=== PATIENT | female | born 1975 | race Hispanic/Latino ===

== ENCOUNTER 2017-09-23 17:35 | Observation (INO) | payer SELFPAY ==
[~2017-09-23 17:35] MED LIST: ISOVUE-370 76%-LOCM 1 ML ONE
[2017-09-23] MEDS ORDERED: Ondansetron HCl/PF 4 MG/2 ML Vial ONE (22:20)
[2017-09-23] MEDS ORDERED: Fentanyl 100 MCG/2 ML VIAL ONE (22:50)
[2017-09-23 23:13] LABS: CKMB 2.8 ng/mL (0-6.6); Troponin I 0.012 ng/mL (< 0.028)
[2017-09-24] MEDS ORDERED: Fentanyl 100 MCG/2 ML VIAL ONE ×3 (00:40→08:48)
[2017-09-24] MEDS ORDERED: Piperacillin/Tazobactam 3.375 GM in Sodium Chloride 0.9% 100 ML IVPB SCH ×2 (00:45→08:00)
[2017-09-24] MEDS ORDERED: Ketorolac Tromethamine 30 MG/ML VIAL IVP PRN (02:00)
[2017-09-24] MEDS ORDERED: Fentanyl 100 MCG/2 ML VIAL SLOW IVP PRN (02:00)
[2017-09-24] MEDS: Ondansetron HCl/PF 4 MG/2 ML Vial IVP PRN ×2 (02:10→08:10)
[2017-09-24 02:24] VITALS: BMI 28.3
[2017-09-24] MEDS: D5 1/2 NS w/20 mEq KCL 1,000 ML IV SCH ×2 (02:36→12:47)
[2017-09-24 04:09] VITALS: TEMP 98.4
--- NOTE | 2017-09-24 07:49 | CT ---
CTA CHEST WITH 3D VOLUME RENDERING: CLINICAL HISTORY: Elevated D-dimer with chest pain. FINDINGS: There is no evidence of a significant filling defect of the contrast-opacified pulmonary arterial sys tem. There is a mild generalized heterogeneity of the distal pulmonary arterial system involving seg mental and subsegmental branches which could potentially obscure small peripheral emboli. There is n o lobar consolidation, effusion, or pneumothorax.. Minimal volume is seen within the pulmonary paren chyma. Moderate distention of the gallbladder. The thoracic aorta is nonaneurysmal. IMPRESSION: 1. There is no acute pulmonary embolus evident. 2. Incompletely assessed and partially visualized distention of the gallbladder. Recommend clinical correlation and dedicated imaging followup as necessary. POS: [facility]
--- NOTE | 2017-09-24 08:08 | ULT ---
RIGHT UPPER QUADRANT ULTRASOUND: DATE: 09/23/17. HISTORY: Right upper quadrant abdominal pain which is worse over the past few days. Nausea and vomiting as we ll as constipation for 1 day. FINDINGS: The uterus is enlarged in craniocaudal dimensions measuring 18.3 cm in craniocaudal dimensions. The gallbladder is distended measuring 15.2 cm in length x 5.5 cm in diameter. Multiple shadowing echoge lucie foci are seen in the gallbladder lumen consistent with multiple gallbladder calculi. There is a calculus present in the neck of the gallbladder which is nonmobile. There is a tiny amount of perich olecystic fluid without significant gallbladder wall thickening present. The common duct measures 0. 5 cm in diameter, which is within normal limits. The limited visualized portions of the pancreas, visualized portions of the IVC, and right kidney dem onstrate a normal sonographic appearance. The right kidney measures 11.7 cm in length. IMPRESSION: 1. Cholelithiasis with a tiny amount of pericholecystic fluid. In the correct clinical scenario, fi ndings could be related to cholecystitis. Multiple gallbladder calculi are seen as well as distentio n of the gallbladder with nonmobile calculus in the gallbladder neck. 2. Mild hepatomegaly. POS: [facility]
[2017-09-24] MEDS ORDERED: Scopolamine 1.5 mg/72 hour Patch TOP SCH (08:15)
[2017-09-24] MEDS ORDERED: Bupivacaine/Epinephrine 0.25% 30 ML VIAL ONE (08:30)
[2017-09-24] MEDS ORDERED: Midazolam HCl 2 mg/2 ml Vial ONE (08:31)
[2017-09-24] MEDS ORDERED: Ondansetron HCl/PF 4 MG/2 ML Vial ONE ×2 (08:54→11:12)
[2017-09-24] MEDS ORDERED: Ketorolac Tromethamine 30 MG/ML VIAL ONE (09:17)
--- NOTE | 2017-09-24 09:29 | HP ---
HISTORY OF PRESENT ILLNESS: Ann Diaz is a 42-year-old female [id number] to Dr. 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 She thought it was indigestion having some part icularly severe episode presenting to Dr. Rose who suggested suspected gallbladder disease and ultrasound in his office confirmed that and she was sent to [place] [facility] at 2:30 in the [facility] because of a busy emergency room there and they were not sent over to [facility] til 11-12 last night. Ultrasound confirmed gallstones. Liver function tests were normal. EKG was nor mal. The patient was sent to the [place] [facility] where I was called by the emergency room physician about 1 in the morning. She was admitted at 2 in the morning, approximately 11 hours after presenting to her primary care physician's office. ALLERGIES: MORPHINE pruritus, hives, nausea and vomiting. SOCIAL HISTORY: Tobacco none. Alcohol rarely. MEDICATIONS: None routinely. PAST SURGICAL HISTORY: C-sections x3 and umbilical hernia repair. PAST MEDICAL HISTORY: Noncontributory. 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 They live in [place]. PHYSICAL EXAMINATION: HEAD, EYES, EARS, NOSE, AND THROAT: Unremarkable. LUNGS: Clear to auscultation. CARDIAC: Regular rate and rhythm without murmur or gallop. ABDOMEN: Soft, tenderness in right upper quadrant with guarding and rebound. EXTREMITIES: Unremarkable. ASSESSMENT AND PLAN: Cholecystitis, cholelithiasis. Recommend laparoscopic video cholecystectomy. Risks of infection, bleeding, visceral and biliary injury explained. She consents.
[2017-09-24] MEDS ORDERED: Promethazine HCl 25 MG/ML VIAL IM PRN (11:02)
[2017-09-24] MEDS ORDERED: Ondansetron HCl/PF 4 MG/2 ML Vial IVP PRN ×2 (11:02→12:17)
[2017-09-24] MEDS ORDERED: Promethazine HCl 25 MG/ML VIAL SLOW IVP PRN (11:02)
[2017-09-24] MEDS ORDERED: Propofol 200 MG/20 ML VIAL ONE (11:12)
[2017-09-24] MEDS ORDERED: Glycopyrrolate 0.2 MG/ML 5 ML SYRINGE ONE (11:12)
[2017-09-24] MEDS ORDERED: Dexamethasone 20 MG/5 ML VIAL ONE (11:12)
[2017-09-24] MEDS ORDERED: PHENYLEPHRINE-NS 100 MCG/ML 10 ML SYRINGE ONE (11:12)
[2017-09-24] MEDS ORDERED: Lidocaine 1% PF 5 ML VIAL ONE (11:12)
[2017-09-24] MEDS ORDERED: Ibuprofen 600 MG TAB PO PRN (12:17)
[2017-09-24] MEDS ORDERED: Ondansetron ODT 4 MG TAB PO PRN (12:17)
[2017-09-24] MEDS ORDERED: Ondansetron ODT 8 MG TAB PO PRN (12:17)
[2017-09-24] MEDS ORDERED: Ondansetron HCl/PF 8 MG in Sodium Chloride 0.9% 50 ML IVPB SCH (12:17)
[2017-09-24] MEDS ORDERED: Ondansetron ODT 8 MG TAB SL PRN (12:17)
[2017-09-24] MEDS ORDERED: Acetaminophen 500 MG TAB PO PRN (12:17)
[2017-09-24] MEDS ORDERED: traMADol HCl 50 MG TAB PO PRN ×2 (12:17)
[2017-09-24] MEDS ORDERED: Ondansetron ORAL SOLN. 4 MG/5 ML UDCUP PO PRN ×2 (12:17)
--- NOTE | 2017-09-24 13:07 | OP ---
PREOPERATIVE DIAGNOSES: Acute cholecystitis, cholelithiasis, history of umbilical hernia repair mesh with concerns of recurrent hernia. POSTOPERATIVE DIAGNOSES: Acute cholecystitis, cholelithiasis, history of umbilical hernia repair mes h with concerns of recurrent hernia without evidence of recurrent umbilical hernia. FINDINGS: Multiple very large gallstones obstructing the gallbladder outlet, acute cholecystitis rhoda reciated. SURGEON: Laron Wilkes M.D. ANESTHESIA: General. Local 0.5% Marcaine with epinephrine, 30 mL DESCRIPTION OF PROCEDURE: The patient was taken to the operating room where under general anesthesia , abdomen was clipped of hair, prepared with ChloraPrep, draped in routine fashion. Local anesthetic infiltrated into skin and subcutaneous tissue about all port sites. Right subcostal incision was ma de in right subxiphoid. Right subcostal midclavicular and anterior lines and 11 mm port placed in fox bxiphoid and 5 mm port was placed in the subcostal incisions after pneumoperitoneum established to 15 mmHg with the Veress needle. Laparoscopy evaluation was undertaken in the umbilical area. Mesh was well positioned, centered about the umbilicus where I could feel a small defect preoperatively in th e fascia and the mesh will cover this. There was no hernia. Patient had concerns that there was a h ernia approximately 3-4 fingerbreadths above the umbilicus and to the right of midline, but there was no evidence of a hernia laparoscopically. Omental adhesions in this area were cleared for adequate evaluation. A 22 gauge needle placed through the umbilical hernia fascial defect and I could palpate to appreciate orientation of the mesh which well covered this area. Needle was visualized laparosco pically. Infraumbilical incision made and 5 mm port placed obliquely cephalad directed and video lap aroscope moved to this port. The gallbladder was tense and I could not grasp it. It was thickened w all and inflamed. Defect was made in the apex of the gallbladder, fundus and contents were evacuated , gallbladder grasped cephalad reflecting the liver cephalad. Omental adhesions to the gallbladder b demario taken down with blunt and sharp dissection using cautery for hemostasis. Infundibulum identified and was obstructed with a stone obstructing the cystic duct. This was grasped and reflected lateral ly. Cystic artery and duct dissected free. Critical view obtained with two-thirds pericholecystic d issection and cystic plate and cystic artery and duct doubly clipped proximally, divided, and gallbla dder dissected free from the liver bed obtaining good hemostasis prior to division of final peritonea l attachments. Gallbladder and contents removed through the subxiphoid incision requiring evacuation of a very large stones to accomplish gallbladder removal, the subxiphoid fascia approximated with co ntinuous running suture of 0 Vicryl UR needle. Good hemostasis ensured in the gallbladder bed. Irri chantell and pneumoperitoneum evacuated. All instruments removed and all skin incisions approximated wit h interrupted subdermal 4-0 Monocryl and DermaGlue applied. The patient tolerated the procedure well .
[2017-09-24 14:48] VITALS: BP 101/63
--- NOTE | 2017-09-24 16:07 | DIS ---
DATE OF ADMISSION: 09/24/2017 DATE OF DISCHARGE: 09/24/2017 DISCHARGE DIAGNOSES: Acute on chronic cholecystitis and cholelithiasis, history of umbilical hernia repair. PROCEDURES THIS HOSPITALIZATION: This procedures ultrasound of the gallbladder in [place]. CT mateo ogram of the abdomen once arrived in [facility] ER, negative for pulmonary embolism. HISTORY: Patient has had a history of epigastric right upper quadrant pain, intermittent postprandia l for years, but became exquisitely severe and presented to see Dr. Rose on Saturday afternoon at 2:00 p.m. and was sent to the ER [place] where she had an ultrasound demonstrating gallstones, norm al bile duct caliber. Patient has had a prolonged wait in the ER at [facility], was sent to [facility] for her gallbladder problems. She had a long wait in the emergency room at [facility] and was not actually put in a room till 11:00 p.m., thus she spent approximately 12 hours i n the hospital system. She was hospitalized overnight, admitted, given intravenous fluids, antibioti cs, antiemetics, taken to the operating room for laparoscopic cholecystectomy and postoperatively did well and discharged home. Follow up with Dr. Wilkes in 2-3 weeks. Diet and activity as tolerated. No activity restrictions. Sent home with Ultram, Tylenol, Motrin p.r.n. pain. Follow up in 2 weeks .
== END 2017-09-24 16:50 | disposition home or self-care (01) ==
LOC: ERS 17:35 → SJJU 09-24 01:40
PROVIDERS: ADMIT Specialist; ATTEND Specialist
PROC: 0FT44ZZ Resection of Gallbladder, Percutaneous Endoscopic Approach (ICD-10-PCS; principal; 2017-09-24)
DX: K80.10 Calculus of gallbladder with chronic cholecystitis without obstruction (principal); K66.0 Peritoneal adhesions (postprocedural) (postinfection); Z79.2 Long term (current) use of antibiotics; Z88.5 Allergy status to narcotic agent; Z98.890 Other specified postprocedural states
CPT/HCPCS: 71275; 76705; 82553; 84484; 85379; 88304; 93005; 96361; 96374; 96375; 96376; G0378; J0131; J1100; J1885; J2001; J2250; J2405; J2543; J2704; J3010; J7050

== ENCOUNTER 2020-12-22 11:06 | Outpatient (CLI) | payer OTHER ==
[2020-12-22 17:53] LABS: SARS-CoV-2 PCR by NAA Not Detected (NotDetected)
== END 2020-12-22 11:07 | disposition home or self-care (01) ==
LOC: LABBT 11:06
PROVIDERS: ATTEND Internal Medicine
DX: Z01.812 Encounter for preprocedural laboratory examination (principal); Z20.822 Contact with and (suspected) exposure to COVID-19
CPT/HCPCS: 87635; U0003; U0005

== ENCOUNTER 2020-12-26 10:43 | Outpatient (CLI) | payer OTHER | END 2020-12-26 10:44 | disposition home or self-care (01) | LOC: RAD 10:43 | PROVIDERS: ATTEND Internal Medicine | DX: K21.9 Gastro-esophageal reflux disease without esophagitis (principal); K44.9 Diaphragmatic hernia without obstruction or gangrene | CPT/HCPCS: 74220 ==

== ENCOUNTER 2023-07-02 09:52 | Outpatient (CLI) | payer OTHER | END 2023-07-02 09:53 | disposition home or self-care (01) | LOC: BICMAMMO 09:52 | PROVIDERS: ATTEND Internal Medicine | DX: Z12.31 Encounter for screening mammogram for malignant neoplasm of breast (principal); N63.20 Unspecified lump in the left breast, unspecified quadrant; N63.10 Unspecified lump in the right breast, unspecified quadrant | CPT/HCPCS: 77063; 77067 ==

== ENCOUNTER 2023-07-03 13:50 | Outpatient (CLI) | payer OTHER | END 2023-07-03 13:51 | disposition home or self-care (01) | LOC: BICULT 13:50 | PROVIDERS: ATTEND Internal Medicine | DX: N63.25 Unspecified lump in the left breast, overlapping quadrants (principal); N63.10 Unspecified lump in the right breast, unspecified quadrant ==

== ENCOUNTER 2024-07-08 09:49 | Outpatient (CLI) | payer OTHER | END 2024-07-08 09:50 | disposition home or self-care (01) | LOC: BICMAMMO 09:49 | PROVIDERS: ATTEND Internal Medicine | DX: Z12.31 Encounter for screening mammogram for malignant neoplasm of breast (principal) | CPT/HCPCS: 77063; 77067 ==